=== PATIENT | male | born 1975 | race Asian ===

== ENCOUNTER 2019-01-29 01:54 | Emergency (ER) | payer OTHER ==
[~2019-01-29] VITALS: Ht 167.6 cm; Wt 99.6 kg
[2019-01-29 01:58] VITALS: BP 153/87; PULSE 103; RESP 16; Ht 167.6 cm; Wt 99.6 kg
[2019-01-29] MEDS ORDERED: IBUPROFEN 600 MG TAB PO ONE (03:00)
[2019-01-29] MEDS ORDERED: IBUP-1542 PO (03:42)
--- NOTE | 2019-01-29 03:47 | ERD ---
ER Documentation Chief Complaint Chief Complaint pt having center back pain after twisting motion moving pt HPI This 43-year-old male presents with right mid back pain after assisting with the patient today. 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 Denies any bowel or bladder incontinence, weakness, deficits, fevers, urinary complaints. He has had intermittent mild back pain but this is worse today after lifting. ROS All systems reviewed and are negative except as per history of present illness. Medications Home Meds Active Scripts Ibuprofen* (Motrin*) 600 Mg Tab, 600 MG PO Q6, #20 TAB Prov:CARISA OCHOA MD 01/29/19 Allergies Allergies: Coded Allergies: No Known Allergy (Unverified , 01/29/19) PMhx/Soc History of Surgery: Yes (Ortho Surg) Anesthesia Reaction: No Hx Neurological Disorder: No Hx Respiratory Disorders: No Hx Cardiac Disorders: No Hx Psychiatric Problems: No Hx Miscellaneous Medical Probl: No Hx Alcohol Use: No Hx Substance Use: No Hx Tobacco Use: Yes (10 sticks/day) Smoking Status: Current every day smoker FmHx Family History: No diabetes, No coronary disease, No other Physical Exam Vitals Vital Signs Date Temp Pulse Resp B/P (MAP) Pulse Ox O2 O2 Flow FiO2 Time Delivery Rate 01/29/19 98.8 103 16 153/87 96 01:58 (109) Physical Exam Const: No acute distress Head: Atraumatic Eyes: Normal Conjunctiva ENT: Normal External Ears, Nose and Mouth. Neck: Full range of motion. No meningismus. Resp: Clear to auscultation bilaterally Cardio: Regular rate and rhythm, no murmurs Abd: Soft, non tender, non distended. Normal bowel sounds Skin: No petechiae or rashes Back: No midline or flank tenderness. Mildly tender in the right L2-L3 area. No midline tenderness. No straight leg raise. Ext: No cyanosis, or edema Neur: Awake and alert with normal gait. No appreciable focal neurologic deficits. Psych: Normal Mood and Affect Results 24 hrs Laboratory Tests Test 01/29/19 03:38 Bedside Urine pH (LAB) 6.0 Bedside Urine Protein (LAB) 1+ Bedside Urine Glucose (UA) Negative Bedside Urine Ketones (LAB) Negative Bedside Urine Blood Negative Bedside Urine Nitrite (LAB) Negative Bedside Urine Leukocyte Esterase (L Negative Current Medications Medications Dose Sig/Aurea Start Time Status Last (Trade) Ordered Route PRN Stop Time Admin Dose Reason Admin Ibuprofen 600 mg ONCE ONCE 01/29/19 DC 01/29/19 (Motrin) PO 03:00 01/29/19 03:02 03:01 Procedures/MDM Urine negative for blood, leukocytes. Patient given ibuprofen for pain. Patient presents with signs and symptoms of lumbar strain in the right L2-L3 area. There is no signs or symptoms to suggest fracture, dislocation, cauda equina syndrome, genitourinary etiology, epidural abscess, deficits, additional complications. He will be treated with modified duty, ibuprofen, recommendations for back exercises and occupational medicine clinic follow-up. The patient was stable with no new complaints during the ER course. Clinically, there is no current evidence to suggest meningitis, sepsis, acute abdomen, pneumonia, stroke, acute coronary syndrome, pulmonary embolism, aortic dissection or any other emergent condition appearing to require further evaluation or hospitalization. Patient counseled regarding my diagnostic impression and care plan. Prior to discharge all questions answered. Pt agrees with treatment plan and understands strict return precautions. Pt is instructed to follow up with primary care provider within 24-48 hours. Precautionary instructions provided including instructions to return to the ER if not improving or for any worsening or changing symptoms or concerns. Departure Diagnosis: Primary Impression: Injury of back Encounter type: initial encounter Qualified Codes: S39.92XA - Unspecified injury of lower back, initial encounter Condition: Stable Patient Instructions: Back Exercises, Lumbar, Back Sprain/Strain Additional Instructions: Modified duty-no lifting greater than 10 pounds for 3 days. See occupational medicine clinic of your employer this week for update of status. CARISA OCHOA MD Jan 29, 2019 03:47
== END 2019-01-29 04:02 | disposition home or self-care (01) ==
LOC: FTE 01:54
DX: S39.92XA Unspecified injury of lower back, initial encounter (principal); F17.210 Nicotine dependence, cigarettes, uncomplicated; X50.0XXA Overexertion from strenuous movement or load, initial encounter; Y92.9 Unspecified place or not applicable
CPT/HCPCS: 81003; 99282